=== PATIENT | male | born 1950 | race African-American/Black ===

== ENCOUNTER 2018-04-29 12:31 | Emergency (ER) | payer MEDICARE | END 2018-04-29 13:55 | disposition home or self-care (01) | LOC: NAV ERS 12:31 | DX: S39.012A Strain of muscle, fascia and tendon of lower back, initial encounter (principal); I10 Essential (primary) hypertension; Z79.899 Other long term (current) drug therapy; X50.1XXA Overexertion from prolonged static or awkward postures, initial encounter | CPT/HCPCS: 99283 ==